=== PATIENT | female | born 1970 | race African-American/Black ===

== ENCOUNTER 2016-11-29 14:47 | Emergency (ER) | payer OTHER ==
--- NOTE | 2016-11-29 15:42 | ER Document Report ---
ED Medical Screen (RME) - General Chief Complaint: Headache Stated Complaint: HEAD PAIN Time seen by provider: 15:41 Mode of Arrival: Ambulatory Information source: Patient Notes: 46-year-old female presents to ED for migraine headache off and on for 2 days states it was bad last night was better this morning and then again bad this afternoon. States she took her Maxalt with no relief. States she has been to see a neurologist and is scheduled for a workup for Botox for her migraines. I have greeted and performed a rapid initial assessment of this patient. A comprehensive ED assessment and evaluation of the patient, analysis of test results and completion of medical decision making process will be conducted by an additional ED providers. TRAVEL OUTSIDE OF THE [place] IN LAST 30 DAYS: No - Related Data Allergies/Adverse Reactions: No Known Allergies Allergy (Unverified 10/20/14 10:43) Past Medical History - Past Medical History Cardiac Medical History: Denies: Hx Coronary Artery Disease, Hx Heart Attack, Hx Hypertension Pulmonary Medical History: Denies: Hx Asthma, Hx Bronchitis, Hx COPD, Hx Pneumonia Neurological Medical History: Denies: Hx Cerebrovascular Accident, Hx Seizures Musculoskeltal Medical History: Denies Hx Arthritis - Immunizations Hx Diphtheria, Pertussis, Tetanus Vaccination: Yes Physical Exam - Vital signs Vitals: Temp Pulse Resp BP Pulse Ox 98.0 F 91 14 113/73 98 11/29/16 14:51 11/29/16 14:51 11/29/16 14:51 11/29/16 14:51 11/29/16 14:51 Course - Vital Signs Vital signs: Temp Pulse Resp BP Pulse Ox 98.0 F 91 14 113/73 98 11/29/16 14:51 11/29/16 14:51 11/29/16 14:51 11/29/16 14:51 11/29/16 14:51
[2016-11-29] MEDS ORDERED: PROCHLORPERAZINE EDISYLATE INJ 10 MG/2 ML VIAL IV ONE (17:08)
[2016-11-29] MEDS ORDERED: NORMAL SALINE 1000 ML 1,000 ML IV ONE (17:08)
[2016-11-29] MEDS ORDERED: DIPHENHYDRAMINE HCL 50 MG/ML VIAL IV ONE (17:08)
[2016-11-29] MEDS ORDERED: KETOROLAC TROMETHAMINE INJ/PF 30 MG/1 ML SDV IV ONE (17:09)
--- NOTE | 2016-11-29 17:10 | ER Document Report ---
ED Headache - General Chief Complaint: Headache Stated Complaint: HEAD PAIN Mode of Arrival: Ambulatory Information source: Patient Notes: Patient reports 2 day history of migraine headache. Patient reports photophobia and phonophobia. Patient also complains of nausea but denies any vomiting. Patient states she typically gets headaches about every other day. Patient denies any improvement after taking Maxalt at home. Patient states headache pain is improved from when she initially arrived to the emergency department. TRAVEL OUTSIDE OF THE [place] IN LAST 30 DAYS: No - HPI Patient complains to provider of: "Migraine" Onset: Other Onset was: Gradual - 2 days Timing: Better Quality of pain: Sharp Pain Level: 3 Context: denies: Head injury Associated symptoms: Nausea/vomiting, Photophobia. denies: Confusion, Fever, Neck pain, Stiff neck Exacerbated by: Light, Noise Similar symptoms previously: Yes Recently seen / treated by doctor: No - Related Data Allergies/Adverse Reactions: No Known Allergies Allergy (Unverified 10/20/14 10:43) Past Medical History - General Information source: Patient - Social History Smoking Status: Never Smoker Frequency of alcohol use: None Drug Abuse: None Occupation: none Lives with: Family Family History: Reviewed & Not Pertinent Patient has suicidal ideation: No Patient has homicidal ideation: No - Past Medical History Cardiac Medical History: Denies: Hx Coronary Artery Disease, Hx Heart Attack, Hx Hypertension Pulmonary Medical History: Denies: Hx Asthma, Hx Bronchitis, Hx COPD, Hx Pneumonia Neurological Medical History: Reports: Hx Migraine. Denies: Hx Cerebrovascular Accident, Hx Seizures Renal/ Medical History: Denies: Hx Peritoneal Dialysis Musculoskeltal Medical History: Denies Hx Arthritis Past Surgical History: Reports: Hx Hysterectomy - Immunizations Hx Diphtheria, Pertussis, Tetanus Vaccination: Yes Review of Systems - Review of Systems Constitutional: No symptoms reported. denies: Fever, Recent illness EENT: No symptoms reported Cardiovascular: No symptoms reported. denies: Chest pain Respiratory: No symptoms reported. denies: Cough Gastrointestinal: Nausea. denies: Vomiting Genitourinary: No symptoms reported Female Genitourinary: No symptoms reported Musculoskeletal: No symptoms reported. denies: Neck pain Skin: No symptoms reported. denies: Rash Hematologic/Lymphatic: No symptoms reported Neurological/Psychological: Headaches Physical Exam - Vital signs Vitals: Temp Pulse Resp BP Pulse Ox 98.0 F 91 14 113/73 98 11/29/16 14:51 11/29/16 14:51 11/29/16 14:51 11/29/16 14:51 11/29/16 14:51 - General General appearance: Appears well, Alert In distress: None Notes: PHYSICAL EXAMINATION: GENERAL: Well-appearing and in no acute distress. HEAD: Atraumatic, normocephalic. EYES: sclera anicteric, conjunctiva are normal. ENT: nares patent. Moist mucous membranes. NECK: Normal range of motion, supple without lymphadenopathy LUNGS: CTAB and equal. No wheezes rales or rhonchi. HEART: Regular rate and rhythm without murmurs EXTREMITIES: Normal range of motion, no pitting edema. No cyanosis. BACK: No midline tenderness, no step-off or deformity. No CVA tenderness NEUROLOGICAL: Cranial nerves grossly intact. Normal speech. Normal gait. PSYCH: Normal mood, normal affect. SKIN: Warm, Dry, normal turgor, no rashes or lesions noted - Neurological Neuro grossly intact: Yes Cognition: Normal Agnes Coma Scale Eye Opening: Spontaneous Agnes Coma Scale Verbal: Oriented Agnes Coma Scale Motor: Obeys Commands Agnes Coma Scale Total: 15 Speech: Normal. No: Dysarthria Cerebellar coordination: Normal Course - Re-evaluation Re-evalutation: 11/29/16 19:00 Patient sleeping, arouses easily to voice. Patient states headache pain has completely resolved and feels ready to go home. - Vital Signs Vital signs: Temp Pulse Resp BP Pulse Ox 98.4 F 78 14 112/69 100 11/29/16 19:10 11/29/16 19:10 11/29/16 19:10 11/29/16 19:10 11/29/16 19:10 Discharge - Discharge Clinical Impression: Hx of migraines Headache Qualifiers: Headache type: unspecified Headache chronicity pattern: unspecified pattern Intractability: not intractable Qualified Code(s): R51 - Headache Condition: Stable Disposition: HOME, SELF-CARE Instructions: Intravenous Compazine for Headaches ([facility]), Toradol Injection ([facility] ), Headache ([facility]), Use of Diphenhydramine Additional Instructions: Return immediately for any new or worsening symptoms Followup with your primary care provider, call tomorrow to make a followup appointment Follow-up with your neurologist for a recheck, call tomorrow for an appointment Referrals: [facility] [Provider Group] - Follow up as needed
[2016-11-29 19:13] VITALS: BP 112/69
== END 2016-11-29 19:10 | disposition home or self-care (01) ==
LOC: ER 14:47
DX: G43.909 Migraine, unspecified, not intractable, without status migrainosus (principal); H53.149 Visual discomfort, unspecified; R11.0 Nausea
CPT/HCPCS: 99283; 96374; 96375; J1200; J1885; J0780; J7030

== ENCOUNTER 2017-01-02 08:43 | Day surgery (SDC) | payer OTHER ==
[2016-12-26 10:39] LABS: HEMATOCRIT 39.3 % (36.0-47.0); HEMOGLOBIN 13.1 g/dL (12.0-15.5); MEAN CORPUSCULAR HEMOGLOBIN 29.1 pg (27.0-33.4); MEAN CORPUSCULAR HGB CONC 33.2 g/dL (32.0-36.0); MEAN CORPUSCULAR VOLUME 87 fl (80-97); RED BLOOD COUNT 4.49 10^6/uL (3.72-5.28); WHITE BLOOD COUNT 4.8 10^3/uL (4.0-10.5)
[2016-12-26 10:44] LABS: APPEARANCE,URINE CLEAR; BILIRUBIN,URINE NEGATIVE (NEGATIVE); GLUCOSE, URINE NEGATIVE (NEGATIVE); KETONES,URINE NEGATIVE (NEGATIVE); LEUKOCYTE ESTERASE,URINE NEGATIVE (NEGATIVE); NITRITE,URINE NEGATIVE (NEGATIVE); PROTEIN,URINE NEGATIVE (NEGATIVE); URINE SPECIFIC GRAVITY 1.027; UROBILINOGEN,URINE NEGATIVE mg/dL (<2.0)
[2016-12-26 10:56] LABS: ALANINE AMINOTRANSFERASE 26 U/L (9-52); ALBUMIN 4.1 g/dL (3.5-5.0); ALKALINE PHOSPHATASE 117 U/L (38-126); ANION GAP 13 (5-19); ASPARTATE AMINO TRANSFERASE 22 U/L (14-36); BILIRUBIN,DIRECT 0.3 mg/dL (0.0-0.4); BILIRUBIN,TOTAL 0.7 mg/dL (0.2-1.3); BLOOD UREA NITROGEN 12 mg/dL (7-20); CALCIUM 9.7 mg/dL (8.4-10.2); CARBON DIOXIDE 22 mmol/L (22-30); CHLORIDE 108 mmol/L (98-107); CREATININE RESULT 0.72 mg/dL (0.52-1.25); GLUCOSE 85 mg/dL (75-110); POTASSIUM 4.4 mmol/L (3.6-5.0); SODIUM 142.8 mmol/L (137-145)
--- NOTE | 2016-12-26 19:05 | EKG REPORT ---
SEVERITY:- NORMAL ECG - SINUS RHYTHM : Confirmed by: Jasmin Sofia MD 26-Dec-2016 19:04:48
[~2017-01-02 08:43] MED LIST: CEFAZOLIN 2 GM/D5W RTU 2 GM/50 ML RTUPB IV PRN; GABAPENTIN 400 MG CAPSULE PO PRN; LACTATED RINGERS 1000 ML IV PRN; LIDOCAINE 0.5% INJ-PF (5 MG/ML) 50 ML SDV SUBCUT PRN
[2017-01-02] MEDS ORDERED: METHYLENE BLUE/PF INJ 100 MG/10 ML SDV ONE (09:49)
[2017-01-02] MEDS ORDERED: BUPIVACAINE HCL 0.25 % INJ/PF (2.5 MG/1 ML) 30 ML VIAL ONE (09:49)
[2017-01-02] MEDS ORDERED: MIDAZOLAM 2 MG/2 ML INJ ONE (10:33)
[2017-01-02] MEDS ORDERED: FENTANYL CITRATE INJ/PF 250 MCG/5 ML AMPULE ONE (10:33)
[2017-01-02] MEDS ORDERED: ACETAMINOPHEN 100 ML IV ONE (10:34)
[2017-01-02] MEDS ORDERED: MORPHINE SULFATE 10 MG/ML INJ ONE (10:34)
[2017-01-02] MEDS ORDERED: PROPOFOL INJ 200 MG/20 ML VIAL IV ONE (10:34)
[2017-01-02] MEDS ORDERED: MORPHINE SULFATE 10 MG/ML INJ IV PRN (12:08)
[2017-01-02] MEDS ORDERED: PROMETHAZINE HCL INJ 25 MG/1 ML VIAL IV PRN ×2 (12:08)
[2017-01-02] MEDS ORDERED: FENTANYL CITRATE INJ/PF 100 MCG/2 ML AMPUL IV PRN ×3 (12:08)
[2017-01-02] MEDS ORDERED: DIPHENHYDRAMINE HCL 50 MG/ML VIAL IV PRN (12:08)
[2017-01-02] MEDS ORDERED: MEPERIDINE HCL/PF INJ 25 MG/1 ML DISP.SYRIN IV PRN (12:08)
[2017-01-02] MEDS ORDERED: OXYCODONE-ACETAMINOPHEN 5-325 MG TABLET PO PRN ×3 (12:08→14:13)
--- NOTE | 2017-01-02 13:05 | PDOC DISCHARGE SUMMARY ---
Discharge Summary (SDC) - Discharge Final Diagnosis: Right adnexal mass posterior pelvic mass Date of Surgery: 01/02/17 Discharge Date: 01/02/17 Condition: Good Forms: Post Operative Treatment or Instructions: Diagnostic Laparoscopy Biopsy of pelvic floor mass Biopsy of right adnexal mass Pelvic washings Prescriptions: Docusate Sodium [Colace 100 mg Capsule] 100 mg PO BID #60 capsule Hydrocodone/Acetaminophen [Vicodin 5-300 mg Tablet] 1 tab PO ASDIR PRN #30 tab PRN Reason: Ibuprofen [Motrin 800 mg Tablet] 800 mg PO Q8H PRN #30 tab PRN Reason: Referrals: MATTHEW VELASCO MD [NO LOCAL MD] - (Call [phone] to schedule a follow up appt and for further instructions regarding referral. You may also call the [facility] RN at these lines for concerns or questions. ) Discharge Diet: As Tolerated Respiratory Treatments at Home: Deep Breathing/Coughing Discharge Activity: Activity As Tolerated, Balance Activity w/Rest Home Care Assistance: None Needed Report the Following to Your Physician Immediately: Vomiting, Increase in Pain, Fever over 101 Degrees, Drainage-Foul Smelling
[2017-01-02] MEDS ORDERED: ONDANSETRON HCL INJ/PF 4 MG/2 ML SDV ONE (13:27)
[2017-01-02] MEDS ORDERED: ROCURONIUM BROMIDE INJ 50 MG/5 ML VIAL IV ONE (13:27)
[2017-01-02] MEDS ORDERED: METOCLOPRAMIDE HCL INJ/PF 10 MG/2 ML SDV ONE (13:27)
[2017-01-02] MEDS ORDERED: NEOSTIGMINE METHYLSULFATE 10 MG/10 ML VIAL ONE (13:27)
[2017-01-02] MEDS ORDERED: LIDOCAINE 2% INJ-PF (20 MG/ML) 10 ML AMPUL ONE (13:27)
[2017-01-02] MEDS ORDERED: DEXAMETHASONE SOD PHOSPHATE INJ 4 MG/1 ML VIAL ONE (13:27)
[2017-01-02] MEDS ORDERED: GLYCOPYRROLATE INJ 0.4 MG/2 ML VIAL ONE (13:27)
[2017-01-02] MEDS ORDERED: SUCCINYLCHOLINE CHLORIDE INJ 200 MG/10 ML VIAL ONE (13:27)
[2017-01-02] MEDS ORDERED: OXYCODONE-ACETAMINOPHEN 5-325 MG TABLET ONE (14:04)
[2017-01-02] MEDS ORDERED: ONDANSETRON HCL INJ/PF 4 MG/2 ML SDV IV PRN (14:13)
[2017-01-02 16:03] VITALS: BP 103/73
--- NOTE | 2017-01-03 10:58 | OPERATIVE REPORT E ---
Operative Report NAME: ELMA THORPE : 1970 AGE: 46Y DATE OF SURGERY: 01/02/2017 ROOM: PREOPERATIVE DIAGNOSES: 1. Suspected pelvic mass, status post hysterectomy. 2. General pelvic discomfort. POSTOPERATIVE DIAGNOSES: 1. Right adnexal mass and inferior pelvic mass. 2. Extensive pelvic adhesions of the omentum to the left pelvic sidewall and the anterior abdominal wall. PROCEDURE: Diagnostic laparoscopy with biopsies of the right adnexal mass and inferior pelvic mass as well as pelvic washing. SURGEON: MATTHEW VELASCO M.D. PLAN REP: Dr. Yamila Kumar ANESTHESIA: General endotracheal anesthesia. COMPLICATIONS: None. ESTIMATED BLOOD LOSS: 15 mL. URINE OUTPUT: Clear at the end of the procedure. SPECIMENS: Right adnexal mass biopsy, inferior pelvic mass biopsy, and pelvic washing. FINDINGS: There is a large white, nodular, calcified appearing mass of the right adnexa stretching from the inferior pelvis up toward the right infundibular pelvic ligament. It appears to be invading portions of the tubal remnant and the IP ligament as well as possibly some of the right pelvic sidewall. In the pelvis deep and posterior to the remaining vaginal cuff area is a smaller circumscribed hard nodular mass approximately 1 x 2 cm in size. On the left side, we were unable to visualize the left adnexa due to dense adhesions of the bowel and the omentum to the left pelvis. Also noted, dense omental adhesions to the anterior abdominal wall from the area of the umbilicus down to the inferior pelvis at the midline. INDICATIONS: The risks, benefits, and alternatives of diagnostic laparoscopy were discussed with the patient including but not limited to infection, allergic reaction, scar, blood loss, need for further operation including an open operation, need for possible blood transfusion, need for multiple interventions including but not limited to oophorectomy, possible need for a laparotomy to complete surgery or repair, or inability to complete removal of the mass at the time of the surgery. The patient consented to the above procedure and indicated procedures thereof. OPERATIVE PROCEDURE: The patient was taken to the operating room where general endotracheal anesthesia was undertaken and found to be adequate. She was prepped and draped in the dorsal lithotomy position and placed in adjustable Eduardo stirrups. Surgical time out was held. Mera catheter was placed in the bladder and a sponge stick manipulator was placed in the vagina. Abdominally, anesthetic with 0.25% plain Marcaine was placed at the base of the umbilicus. After this, a 12 mm skin incision was then made in the umbilicus. Veress needle was placed into the abdomen and a drop in CO2 pressure to 3 mmHg confirmed intraperitoneal placement. CO2 gas was then used to insufflate the abdomen to a pressure of 15 mmHg. The Veress was removed and a 12 mm trocar was placed and immediate visualization with the 10 mm robotic camera was then used to notate a triadic entry. It was also used to notate the above findings. A thorough investigation of the pelvis was performed and investigation revealed the findings above. At this point, it was thought that 2 additional ports and the insertion of instruments would provide us the ability to perform better inspection of the pelvic organs as well as to take biopsies. Two 8 mm ports were placed, one in each lower quadrant of the abdomen using the typical routine fashion of injection with 0.25% plain Marcaine, incision with scalpel, and placement of the port under direct visualization. At this time, blunt grasper and function web manager were used to further investigate the pelvis. Pelvic washings were obtained. Then biopsy forceps was introduced and biopsies were taken of both of the masses described and passed off. Deep biopsy of the right adnexal mass was sent for frozen section. The areas of the biopsy were cauterized to ensure excellent hemostasis. At this time, we determined that due to the adhesions and the amount of growth of the right adnexal mass into its surrounding structures, would prevent us from completing the surgery laparoscopically. As well, we determined that the masses were suspicious enough in appearance as well as the amount of scar tissue, that the patient had warranted consultation with [facility]. For this reason, we decided to end the procedure at this time, even prior to the callback on the frozen specimen. At this point, the instruments were removed from the abdomen. The abdomen was relieved of all CO2 gas and the trocars were all removed from the abdomen. The fascia of the 12 mm port was closed with 0 Vicryl on the UR6 needle. The skin was closed with 4-0 Vicryl suture and Dermabond. The sponge stick was removed from the vagina. The Mera catheter was removed from the bladder. Patient was taken out of lithotomy position. Anesthesia was reversed and she was taken to the PACU in stable condition. 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 Please see their report for full pathology details. DICTATING PHYSICIAN: MATTHEW VELASCO M.D. [id number] PHY#: [id number] ID: [id number] JOB#: [id number] ACCT: [id number] cc:MATTHEW VELASCO M.D. >
== END 2017-01-02 15:40 | disposition home or self-care (01) ==
LOC: OROUT 08:43
PROVIDERS: ATTEND Obstetrics & Gynecology
PROC: 0WBN4ZX Excision of Female Perineum, Percutaneous Endoscopic Approach, Diagnostic (ICD-10-PCS; principal; 2017-01-02 10:30)
DX: D25.2 Subserosal leiomyoma of uterus (principal); R19.00 Intra-abdominal and pelvic swelling, mass and lump, unspecified site; N73.6 Female pelvic peritoneal adhesions (postinfective); E66.9 Obesity, unspecified; Z68.37 Body mass index [BMI] 37.0-37.9, adult; G43.909 Migraine, unspecified, not intractable, without status migrainosus; Z79.899 Other long term (current) drug therapy
CPT/HCPCS: 93005; 86900; 86901; 36415; 86850; 85027; 80053; 81001; 88104 ×2; 88305 ×2; 88331 ×2; 93010; 49321; J2250; J3490 ×2; J1100; J3010; J2765; J2270; J0330; J2405; J2704; J0690; J0131; 840; Q9968